=== PATIENT | female | born 1980 | race Two or more races ===

== ENCOUNTER 2017-08-29 10:00 | Outpatient (CLI) | payer OTHER ==
[~2017-08-29 10:00] MED LIST: AMOX1TAB12 PO; GILTUSS TR TAB1 EACH PO; LEVAQUIN500 MG PO; ZITHROMAX200 MG PO; ZITHROMAX500 MG PO; ZYRTEC10 MG PO
== END 2017-08-29 16:12 | disposition home or self-care (01) ==
LOC: RAD 10:00
DX: M54.5 Low back pain (principal)

== ENCOUNTER 2018-05-06 23:28 | Emergency (ER) | payer OTHER ==
[~2018-05-06] VITALS: Ht 162.6 cm; Wt 90.7 kg
[2018-05-07] MEDS ORDERED: ALBUTEROL2.5 MG/3 M IH (04:28)
[2018-05-07] MEDS ORDERED: ZYNCOF 20-400120 ML PO (04:28)
[2018-05-07] MEDS ORDERED: OSEL75CA PO (04:28)
== END 2018-05-07 04:34 | disposition home or self-care (01) ==
LOC: ER 23:28
DX: J11.1 Influenza due to unidentified influenza virus with other respiratory manifestations (principal); R50.9 Fever, unspecified

== ENCOUNTER 2018-07-23 10:07 | Outpatient (CLI) | payer OTHER ==
[~2018-07-23 10:07] MED LIST changes: +ALBUTEROL2.5 MG/3 M IH; +OSEL75CA PO; +ZYNCOF 20-400120 ML PO
== END 2018-07-23 10:27 | disposition home or self-care (01) ==
LOC: LAB 10:07
DX: R10.9 Unspecified abdominal pain (principal)

== ENCOUNTER 2018-07-23 10:33 | Outpatient (CLI) | payer OTHER | END 2018-07-23 15:24 | disposition home or self-care (01) | LOC: SONOGRAMA 10:33 | DX: R10.11 Right upper quadrant pain (principal) ==

== ENCOUNTER → 2019-01-01 06:30 | Outpatient (CLI) | payer OTHER | END | disposition home or self-care (01) | LOC: LAB 06:30 | DX: E78.49 Other hyperlipidemia (principal); I10 Essential (primary) hypertension; E55.9 Vitamin D deficiency, unspecified; Z00.00 Encounter for general adult medical examination without abnormal findings ==

== ENCOUNTER 2019-01-28 07:52 | Outpatient (CLI) | payer OTHER | END 2019-01-28 08:02 | disposition home or self-care (01) | LOC: LAB 07:52 | DX: E03.8 Other specified hypothyroidism (principal); E78.00 Pure hypercholesterolemia, unspecified; N39.0 Urinary tract infection, site not specified; Z00.00 Encounter for general adult medical examination without abnormal findings; I10 Essential (primary) hypertension; Z11.4 Encounter for screening for human immunodeficiency virus [HIV]; E55.9 Vitamin D deficiency, unspecified; Z21 Asymptomatic human immunodeficiency virus [HIV] infection status; R79.89 Other specified abnormal findings of blood chemistry ==

== ENCOUNTER 2019-01-28 08:29 | Outpatient (CLI) | payer OTHER | END 2019-01-28 08:37 | disposition home or self-care (01) | LOC: MAMO-SONO 08:29 | DX: N94.0 Mittelschmerz (principal); R10.2 Pelvic and perineal pain; N94.89 Other specified conditions associated with female genital organs and menstrual cycle; Z12.31 Encounter for screening mammogram for malignant neoplasm of breast ==

== ENCOUNTER 2019-03-01 09:20 | Inpatient (IN) | payer OTHER ==
[~2019-03-01] VITALS: Ht 162.6 cm; Wt 92.5 kg
[2019-03-01] MEDS ORDERED: ZITHROMAX TRI-500 MG (09:31)
[2019-03-01] MEDS ORDERED: CANDESARTAN CILE8 MG (09:32)
[2019-03-01] MEDS ORDERED: MEDROLPACK (09:32)
[2019-03-04] MEDS ORDERED: CIPRO500 MG PO (13:49)
[2019-03-04] MEDS ORDERED: FLAGYL500MG PO (13:50)
== END 2019-03-04 14:23 | disposition home or self-care (01) | DRG 392 ==
LOC: ER 09:20 → MEDJ 15:04
PROVIDERS: ADMIT Student in an Organized Health Care Education/Training Program
PROC: BW21ZZZ Computerized Tomography (CT Scan) of Abdomen and Pelvis (ICD-10-PCS; principal; 2019-03-01)
DX: K57.32 Diverticulitis of large intestine without perforation or abscess without bleeding (principal); N20.0 Calculus of kidney

== ENCOUNTER 2019-06-16 10:21 | Outpatient (CLI) | payer OTHER ==
[~2019-06-16 10:21] MED LIST changes: +CANDESARTAN CILE8 MG; +CIPRO500 MG PO; +FLAGYL500MG PO; +MEDROLPACK; +ZITHROMAX TRI-500 MG
== END 2019-06-16 10:30 | disposition home or self-care (01) ==
LOC: LAB 10:21
DX: J11.1 Influenza due to unidentified influenza virus with other respiratory manifestations (principal); R53.81 Other malaise; R05 Cough

== ENCOUNTER 2019-07-12 07:38 | Emergency (ER) | payer OTHER ==
[~2019-07-12] VITALS: Ht 162.6 cm; Wt 95.3 kg
[2019-07-12] MEDS ORDERED: ATACAND HCT 161 EACH (07:52)
== END 2019-07-12 11:52 | disposition home or self-care (01) ==
LOC: ER 07:38
DX: H66.91 Otitis media, unspecified, right ear (principal); Z20.828 Contact with and (suspected) exposure to other viral communicable diseases